=== PATIENT | female | born 1975 | race African-American/Black ===

== ENCOUNTER 2018-01-19 09:51 | Emergency (ER) | payer BC, MEDICAID ==
[~2018-01-19] VITALS: Ht 165.1 cm; Wt 103.0 kg
[2018-01-19 09:56] VITALS: BP 136/70
== END 2018-01-19 12:05 | disposition home or self-care (01) ==
LOC: ER 09:51
DX: H66.92 Otitis media, unspecified, left ear (principal); B34.9 Viral infection, unspecified
CPT/HCPCS: 99283